=== PATIENT | female | born 1965 | race Caucasian/White ===

== ENCOUNTER 2018-01-20 05:34 | Day surgery (SDC) | payer BC ==
[~2018-01-20] VITALS: Ht 170.2 cm; Wt 85.7 kg
[2018-01-20 06:30] VITALS: BP 118/73
[2018-01-20] MEDS ORDERED: IBUPROFEN800 MG PO (10:20)
[2018-01-20] MEDS ORDERED: ENDOCET 5-3251 EACH PO (10:20)
[2018-01-20 11:15] VITALS: BP 121/71
[2018-01-20 12:13] VITALS: BP 110/59
[2018-01-20 13:25] VITALS: BP 124/71
== END 2018-01-20 13:45 | disposition home or self-care (01) ==
LOC: SDC
PROC: 0UT74ZZ Resection of Bilateral Fallopian Tubes, Percutaneous Endoscopic Approach (ICD-10-PCS; principal; 2018-01-20)
PROC: 0UTC4ZZ Resection of Cervix, Percutaneous Endoscopic Approach (ICD-10-PCS; principal; 2018-01-20)
PROC: 0UT94ZZ Resection of Uterus, Percutaneous Endoscopic Approach (ICD-10-PCS; principal; 2018-01-20)
PROC: 0UB04ZX Excision of Right Ovary, Percutaneous Endoscopic Approach, Diagnostic (ICD-10-PCS; principal; 2018-01-20)
PROC: 0TNB4ZZ Release Bladder, Percutaneous Endoscopic Approach (ICD-10-PCS; 2018-01-20)
PROC: 0TJB8ZZ Inspection of Bladder, Via Natural or Artificial Opening Endoscopic (ICD-10-PCS; 2018-01-20)
PROC: 0TN64ZZ Release Right Ureter, Percutaneous Endoscopic Approach (ICD-10-PCS; 2018-01-20)
DX: N92.0 Excessive and frequent menstruation with regular cycle (principal); N72 Inflammatory disease of cervix uteri; N80.0 Endometriosis of uterus; D27.0 Benign neoplasm of right ovary; D25.0 Submucous leiomyoma of uterus; N83.8 Other noninflammatory disorders of ovary, fallopian tube and broad ligament; N13.5 Crossing vessel and stricture of ureter without hydronephrosis; K66.0 Peritoneal adhesions (postprocedural) (postinfection); D64.9 Anemia, unspecified; Z88.0 Allergy status to penicillin; Z82.49 Family history of ischemic heart disease and other diseases of the circulatory system
CPT/HCPCS: 84702; 86850; 86900; 86901; 88307; J1170; J1580; J1885; J2550; J7050